=== PATIENT | female | born 1975 | race Caucasian/White ===

== ENCOUNTER 2017-12-26 15:13 | Emergency (ER) | payer MEDICARE ==
[~2017-12-26] VITALS: Ht 160 cm; Wt 99.0 kg
[2017-12-26] MEDS ORDERED: PLEASE ENTER ALLERGIES MC SCH (15:30)
[2017-12-26] MEDS ORDERED: KETOROLAC 30 MG/1 ML IM ONE (15:30)
[2017-12-26] MEDS ORDERED: TRAZ150T62 PO (15:37)
[2017-12-26] MEDS ORDERED: OLAN5TAB9 PO (15:37)
[2017-12-26] MEDS ORDERED: HYDR50TA13 PO (15:37)
[2017-12-26] MEDS ORDERED: KETOROLAC 30 MG/1 ML ONE (15:39)
[2017-12-26 15:46] LABS: BASOPHILS # (AUTO) 0.05 x10^3/uL (0-0.1); BASOPHILS % (AUTO) 1 % (0-1); EOSINOPHILS # (AUTO) 0.18 x10^3/uL (0-0.4); EOSINOPHILS % (AUTO) 2 % (1-7); LYMPHOCYTES # (AUTO) 3.57 x10^3/uL (1-3.4); LYMPHOCYTES % (AUTO) 37 % (22-44); MD NO; MEAN CORPUSCULAR HEMOGLOBIN 27.9 pg (27.0-34.8); MEAN CORPUSCULAR HGB CONC 33.4 g/dL (32.4-35.8); MEAN CORPUSCULAR VOLUME 83.4 fL (80-100); MEAN PLATELET VOLUME 8.9 fL (7.4-10.4); MONOCYTES # (AUTO) 0.85 x10^3/uL (0.2-0.8); MONOCYTES % (AUTO) 9 % (2-9); NEUTROPHILS % (AUTO) 51 % (42-75); PLATELET COUNT 310 x10^3/uL (130-400); RED BLOOD COUNT 4.77 x10^6/uL (3.82-5.3); RED CELL DISTRIBUTION WIDTH 15.3 % (9.6-15.2)
[2017-12-26] MEDS ORDERED: KETOROLAC 30 MG/1 ML IVPush ONE (16:00)
[2017-12-26 16:02] LABS: ALBUMIN 3.4 g/dL (3.4-5.0); ANION GAP 10 mmol/L (5-15); CALCIUM 8.2 mg/dL (8.5-10.1); CHLORIDE 108 mmol/L (98-107); CREATININE 0.81 mg/dL (0.55-1.02)
[2017-12-26 16:05] LABS: TROPONIN I < 0.015 ng/mL (0.000-0.045)
[2017-12-26 16:41] VITALS: BP 118/74
== END 2017-12-26 16:44 | disposition home or self-care (01) ==
LOC: ED 16:30
DX: R07.2 Precordial pain (principal); F17.200 Nicotine dependence, unspecified, uncomplicated; R07.89 Other chest pain
CPT/HCPCS: 36415; 71045; 80048; 82040; 84484; 85025; 93005; 96374; 99285; J1885

== ENCOUNTER 2018-02-14 16:57 | Emergency (ER) | payer MEDICAID, MEDICARE ==
[~2018-02-14] VITALS: Ht 162.6 cm; Wt 104.0 kg
[~2018-02-14 16:57] MED LIST: HYDR50TA13 PO; OLAN5TAB9 PO; TRAZ150T62 PO
[2018-02-14 17:48] LABS: BASOPHILS # (AUTO) 0.12 x10^3/uL (0-0.1); BASOPHILS % (AUTO) 1 % (0-1); EOSINOPHILS # (AUTO) 0.25 x10^3/uL (0-0.4); EOSINOPHILS % (AUTO) 2 % (1-7); LYMPHOCYTES # (AUTO) 3.73 x10^3/uL (1-3.4); LYMPHOCYTES % (AUTO) 30 % (22-44); MD NO; MEAN CORPUSCULAR HEMOGLOBIN 29.1 pg (27.0-34.8); MEAN CORPUSCULAR HGB CONC 33.5 g/dL (32.4-35.8); MEAN CORPUSCULAR VOLUME 86.9 fL (80-100); MEAN PLATELET VOLUME 9.7 fL (7.4-10.4); MONOCYTES # (AUTO) 0.65 x10^3/uL (0.2-0.8); MONOCYTES % (AUTO) 5 % (2-9); NEUTROPHILS # (AUTO) 7.66 x10^3/uL (1.8-6.8); NEUTROPHILS % (AUTO) 62 % (42-75); PLATELET COUNT 331 x10^3/uL (130-400); RED BLOOD COUNT 4.76 x10^6/uL (3.82-5.3); RED CELL DISTRIBUTION WIDTH 15.9 % (9.6-15.2)
[2018-02-14 17:53] LABS: ALANINE AMINOTRANSFERASE 29 U/L (12-78); ALBUMIN 3.8 g/dL (3.4-5.0); ANION GAP 4 mmol/L (5-15); CALCIUM 9.5 mg/dL (8.5-10.1); CHLORIDE 109 mmol/L (98-107); CREATININE 0.82 mg/dL (0.55-1.02)
[2018-02-14 17:57] LABS: ALKALINE PHOSPHATASE 65 U/L (45-117); BILIRUBIN,TOTAL 0.1 mg/dL (0.2-1.0); TOTAL PROTEIN 7.5 g/dL (6.4-8.2)
[2018-02-14 19:14] LABS: MICROSCOPIC INDICATED
[2018-02-14 19:15] LABS: CULTURE INDICATED? YES
[2018-02-14] MEDS ORDERED: ACETAMINOPHEN 500 MG TABLET ONE (19:26)
[2018-02-14] MEDS ORDERED: ACETAMINOPHEN 500 MG TABLET PO ONE (19:30)
[2018-02-14 20:20] VITALS: BP 138/76
== END 2018-02-14 20:57 | disposition home or self-care (01) ==
LOC: ED 19:01
DX: N92.0 Excessive and frequent menstruation with regular cycle (principal); N93.8 Other specified abnormal uterine and vaginal bleeding; F17.200 Nicotine dependence, unspecified, uncomplicated
CPT/HCPCS: 36415; 76830; 80053; 81001; 84702; 85025; 87086; 99285

== ENCOUNTER 2019-03-14 23:20 | Emergency (ER) | payer MEDICARE, MEDICAID ==
[~2019-03-14] VITALS: Ht 170.2 cm; Wt 102.9 kg
[2019-03-14] MEDS ORDERED: HYDROmorphone 1 MG/ML, 1ML INJ IM STA (23:51)
[2019-03-14] MEDS ORDERED: PROMETHAZINE 25 MG/ML, 1ML IM STA (23:51)
[2019-03-14] MEDS ORDERED: PROMETHAZINE 25 MG/ML, 1ML ONE (23:54)
[2019-03-14] MEDS ORDERED: HYDROmorphone 2 MG/ML, 1ML ONE (23:55)
--- NOTE | 2019-03-14 23:59 | NUR ---
Pt report from christopher mckeon. This rn to assume care of pt. Pt medicated per mar by christopher mckeon. No other immediate needs. Wctm.
[2019-03-15] MEDS ORDERED: MAALOX/HYOSCYAMINE/LIDOCAINE 45 ML BTL ONE (00:58)
[2019-03-15] MEDS ORDERED: MAALOX/HYOSCYAMINE/LIDOCAINE 45 ML BTL PO ONE (01:00)
[2019-03-15 01:01] VITALS: BP 130/78
== END 2019-03-15 01:04 | disposition home or self-care (01) ==
LOC: ED 03-15 00:50
DX: G43.101 Migraine with aura, not intractable, with status migrainosus (principal); F17.210 Nicotine dependence, cigarettes, uncomplicated
CPT/HCPCS: 96372; 99283; J1170; J2550